=== PATIENT | male | born 1985 | race Caucasian/White ===

== ENCOUNTER → 2020-01-26 | Outpatient (CLI) | payer OTHER ==
[2020-01-26 10:48] LABS: PLATELET COUNT 222 x10^3mcL (152-348)
[2020-01-26 10:50] LABS: ALBUMIN 4.3 g/dL (3.4-5.0); ALKALINE PHOSPHATASE 75 U/L (46-116); ALT/SGPT 39 U/L (16-63); AST/SGOT 17 U/L (15-37); BILIRUBIN TOTAL 0.6 mg/dL (0.20-1.00); CALCIUM 9.3 mg/dL (8.5-10.1); CARBON DIOXIDE 27.1 mmol/L (21-32); CHLORIDE SERUM 106 mmol/L (98-107); CHOLESTEROL 156 mg/dL (<200); CREATININE SERUM 1.1 mg/dL (0.7-1.3); GFR1 > 60 mL/min; GLUCOSE SERUM 95 mg/dL (74-106); POTASSIUM SERUM 4.7 mmol/L (3.5-5.1); SODIUM SERUM 142 mmol/L (136-145); TOTAL PROTEIN, SERUM 7.9 g/dL (6.4-8.2); TRIGLYCERIDES 63 mg/dL (<150)
[2020-01-26 11:00] LABS: CHOLESTEROL/HDL RATIO 4.7; HDL CHOLESTEROL 33 mg/dL (40-60)
== END | disposition home or self-care (01) ==
LOC: US 09:00
PROC: B345ZZZ Ultrasonography of Bilateral Common Carotid Arteries (ICD-10-PCS; principal; 2020-01-26)
PROC: B348ZZZ Ultrasonography of Bilateral Internal Carotid Arteries (ICD-10-PCS; 2020-01-26)
DX: Z00.00 Encounter for general adult medical examination without abnormal findings (principal); R42 Dizziness and giddiness

== ENCOUNTER 2020-02-21 04:48 | Emergency (ER) | payer OTHER ==
[~2020-02-21] VITALS: Ht 180.3 cm; Wt 109.8 kg
[2020-02-21 04:59] VITALS: Ht 180.3 cm; Wt 109.8 kg
[2020-02-21 06:54] VITALS: BP 146/89
[2020-02-21 11:24] LABS: UA SPECIFIC GRAVITY 1.025 (1.005-1.035); microscopic required? YES; urine erythrocyte 2+ (NEGATIVE)
== END 2020-02-21 06:54 | disposition home or self-care (01) ==
LOC: ED 04:48
PROVIDERS: Emergency Medicine
DX: R31.29 Other microscopic hematuria (principal); R10.30 Lower abdominal pain, unspecified